=== PATIENT | female | born 1965 | race Caucasian/White ===

== ENCOUNTER → 2016-08-13 | Outpatient (REF) | payer MEDICARE ==
[2016-08-16 00:06] LABS: ENDOMYSIAL ABY IgA Positive (Negative)
== END ==
LOC: M LAB REF 16:44
PROVIDERS: ATTEND Internal Medicine
DX: R19.7 Diarrhea, unspecified (principal); R10.84 Generalized abdominal pain

== ENCOUNTER → 2016-10-02 | Outpatient (CLI) | payer MEDICARE ==
[~2016-10-02] VITALS: Ht 157.5 cm; Wt 76.4 kg
[~2016-10-02] MED LIST: ASPI81TA85 PO; ASTE0.15; BENT10CA PO; CARB1TAB20 PO; HUMA100I5 SC; INSULANT SC; LEVO75TA4 PO; LIDOCAINE 2% INJ 100 MG/5 ML SDV (FOR ANES.) As Ordered ONE; LOSA100T37 PO; NS 1,000 ML IV SCH; PARO-39 PO; PROPOFOL 200 MG/20 ML VIAL As Ordered ONE; SIMV40TA2 PO; TYLE650T35 PO; fentaNYL 100 MCG/2 ML INJECTION (J3010) As Ordered ONE
--- NOTE | 2016-10-02 11:26 | ROOR ---
Patient Name: Diana Rose Procedure Date: 10/02/2016 11:12 AM Date of : 1965 Age: 51 Room: [facility] Gender: Female Note Status: Finalized Procedure: Upper GI endoscopy Indications: Positive celiac serologies, Endoscopy to assess diarrhea in patient suspected of having celiac disease Providers: Alessandro ANSARI MD Referring MD: Tanya Buck DO Requesting Provider: Medicines: Monitored Anesthesia Care Complications: No immediate complications. Procedure: Pre-Anesthesia Assessment: - The heart rate, respiratory rate, oxygen saturations, blood pressure, adequacy of pulmonary ventilation, and response to care were monitored throughout the procedure. The Endoscope was introduced through the mouth, and advanced to the third part of duodenum. The upper GI endoscopy was accomplished without difficulty. The patient tolerated the procedure well. Findings: Diffuse mildly scalloped mucosa was found in the entire examined duodenum. Biopsies were taken with a cold forceps for histology. The exam was otherwise without abnormality. Impression: - Scalloped mucosa was found in the duodenum, not consistent with celiac disease. Biopsied. - The examination was otherwise normal. Recommendation: - Await pathology results. - Gluten free diet for the rest of the patient's life. Alessandro Ansari MD Alessandro ANSARI MD 10/02/2016 11:25:43 AM This report has been signed electronically. Number of Addenda: 0 Note Initiated On: 10/02/2016 11:12 AM Estimated Blood Loss: Estimated blood loss: none.
--- NOTE | 2016-10-02 11:48 | ROOR ---
Patient Name: Diana Rose Procedure Date: 10/02/2016 11:13 AM Date of : 1965 Age: 51 Room: [facility] Gender: Female Note Status: Finalized Procedure: Colonoscopy Indications: Screening in patient at increased risk: Colorectal cancer in father 60 or older, Incidental diarrhea noted, (61), celiac disease, r/o lymphocytic colitis Providers: Alessandro ANSARI MD Referring MD: Tanya Buck DO Requesting Provider: Medicines: Monitored Anesthesia Care Complications: No immediate complications. Procedure: Pre-Anesthesia Assessment: - The heart rate, respiratory rate, oxygen saturations, blood pressure, adequacy of pulmonary ventilation, and response to care were monitored throughout the procedure. The Colonoscope was introduced through the anus and advanced to 5 cm into the ileum. The colonoscopy was performed without difficulty. The patient tolerated the procedure well. The quality of the bowel preparation was good. Findings: The perianal and digital rectal examinations were normal. Two sessile polyps were found in the proximal transverse colon and hepatic flexure. The polyps were 4 to 5 mm in size. These polyps were removed with a cold snare. Resection and retrieval were complete. A scattered area of mildly erythematous mucosa was found in the entire colon. This was biopsied with a cold forceps for evaluation of microscopic colitis. The exam was otherwise without abnormality on direct and retroflexion views. (Exam: Complete, Prep: Good or Excellent.) Impression: - (Exam: Complete, Prep: Good or Excellent.) - The terminal ileum is normal. - Two 4 to 5 mm polyps in the proximal transverse colon and at the hepatic flexure, removed with a cold snare. Resected and retrieved. - Mildly erythematous mucosa in the entire examined colon. Biopsied. - The examination was otherwise normal on direct and retroflexion views. Recommendation: - Telephone endoscopist for pathology results in 2 weeks. - If the pathology report reveals adenomatous tissue, then repeat the colonoscopy for surveillance in 3 years. - If the pathology report indicates hyperplastic polyp, then repeat colonoscopy for screening purposes in 5 years. Alessandro Ansari MD Alessandro ANSARI MD 10/02/2016 11:47:54 AM This report has been signed electronically. Number of Addenda: 0 Note Initiated On: 10/02/2016 11:13 AM Estimated Blood Loss: Estimated blood loss: none.
[2016-10-02 12:20] VITALS: BP 121/71
== END ==
LOC: M OPP 10:43
PROVIDERS: ATTEND Internal Medicine Gastroenterology
DX: D12.3 Benign neoplasm of transverse colon (principal); R79.9 Abnormal finding of blood chemistry, unspecified; K29.80 Duodenitis without bleeding; K52.9 Noninfective gastroenteritis and colitis, unspecified; Z80.0 Family history of malignant neoplasm of digestive organs; K31.89 Other diseases of stomach and duodenum; F41.9 Anxiety disorder, unspecified; G40.909 Epilepsy, unspecified, not intractable, without status epilepticus
CPT/HCPCS: 43239; 45380; 45385; 88305; 99156; 99157; J3010

== ENCOUNTER → 2016-11-07 | Outpatient (REF) | payer MEDICARE ==
[~2016-11-07] MED LIST changes: -LIDOCAINE 2% INJ 100 MG/5 ML SDV (FOR ANES.) As Ordered ONE; -NS 1,000 ML IV SCH; -PROPOFOL 200 MG/20 ML VIAL As Ordered ONE; -fentaNYL 100 MCG/2 ML INJECTION (J3010) As Ordered ONE
== END ==
LOC: M LAB REF 16:55
PROVIDERS: ATTEND Internal Medicine
DX: K90.0 Celiac disease (principal)

== ENCOUNTER → 2016-12-03 | Outpatient (CLI) | payer MEDICARE | LOC: M LAB 10:47 | PROVIDERS: ATTEND Internal Medicine Gastroenterology | DX: K90.0 Celiac disease (principal) ==

== ENCOUNTER → 2016-12-05 | Outpatient (CLI) | payer MEDICARE ==
[~2016-12-05] MED LIST changes: +E-Z-PAQUE 96% w/w SUSP 176GM BTL As Ordered ONE
--- NOTE | 2016-12-08 17:43 | REP ---
Small bowel follow-through The procedure was performed under the direct supervision of Dr. Hollingsworth. The images were reviewed with Dr. Hollingsworth. The outside upholsterer film shows no organomegaly or pathological masses. The intestinal gas pattern is nonspecific. There are degenerative changes of the spine. There are vascular calcifications identified. Liquid barium was administered and the barium column was followed through the small bowel to the level of the terminal ileum. Small bowel transit time is approximately 95 minutes . During fluoroscopy gentle palpation shows all loops are freely movable and pliable. There are no fixed or angulated loops. The small bowel mucosal pattern is normal in course and caliber. There is no transition to suggest a partial small bowel obstruction. Spot filming of the terminal ileum shows it to be unremarkable. Impression: Small bowel follow-through examination within normal limits. 1 minute and 50 seconds of fluoro time was utilized for this procedure. Reviewed by HUNTER Mobley 12/05/2016 05:09 PSigned by Jesús Hollingsworth MD 12/08/2016 05:33 P
== END ==
LOC: M RAD 08:24
PROVIDERS: ATTEND Internal Medicine Gastroenterology
DX: K90.0 Celiac disease (principal)

== ENCOUNTER → 2018-04-30 | Outpatient (REF) | payer MEDICARE ==
[2018-04-30 18:25] LABS: RHEUMATOID FACTOR QUANT < 10.0 IU/ML (<15.0)
[2018-05-04 00:07] LABS: ANTINUCLEAR ANTIBODIES DIRECT Negative (Negative); Lyme Disease IgG/IgM Antibodie <0.91 ISR (0.00-0.90); Lyme Disease IgM Ab Quantitati <0.80 index (0.00-0.79)
== END ==
LOC: M LAB REF 17:36
DX: M25.50 Pain in unspecified joint (principal)
CPT/HCPCS: 86038

== ENCOUNTER → 2019-11-10 | Outpatient (REF) | payer MEDICARE ==
[~2019-11-10] MED LIST changes: -E-Z-PAQUE 96% w/w SUSP 176GM BTL As Ordered ONE; -LOSA100T37 PO; +LOSA100T5 PO; -PARO-39 PO; +PARO20TA4 PO; -SIMV40TA2 PO; +SIMV40TA20 PO
== END ==
LOC: M LAB REF 17:00
PROVIDERS: ATTEND Internal Medicine
DX: K90.0 Celiac disease (principal)

== ENCOUNTER → 2020-05-11 | Outpatient (REF) | payer MEDICARE ==
[~2020-05-11] MED LIST changes: +ACET650T61 PO; -ASPI81TA85 PO; +ASPI81TA86 PO; -TYLE650T35 PO
== END ==
LOC: M LAB REF 11:20
PROVIDERS: ATTEND Internal Medicine
DX: G40.909 Epilepsy, unspecified, not intractable, without status epilepticus (principal)

== ENCOUNTER → 2020-07-15 | Outpatient (CLI) | payer MEDICARE ==
[~2020-07-15] MED LIST changes: +AMLO1TAB24; +CITA40TA4; +ECOT81TA5 PO; +EUTH100T; +GABA-843; +LISI2.5T2; +TRES1INJ2 SQ
== END ==
LOC: M LABSMTC 08:31
PROVIDERS: ATTEND Anesthesiology
DX: Z11.59 Encounter for screening for other viral diseases (principal)

== ENCOUNTER 2020-07-20 07:10 | Day surgery (SDC) | payer MEDICARE ==
[~2020-07-20] VITALS: Ht 154.9 cm; Wt 71.2 kg
[~2020-07-20 07:10] MED LIST changes: +NS 1,000 ML IV ONE
[2020-07-20] MEDS ORDERED: propofoL 200 MG/20 ML VIAL As Ordered ONE (07:31)
[2020-07-20] MEDS ORDERED: LIDOCAINE 2% 100MG/5ML SDV (FOR ANES.) As Ordered ONE (07:31)
--- NOTE | 2020-07-20 08:42 | ROOR ---
Patient Name: Diana Rose Procedure Date: 07/20/2020 8:09 AM Date of : 1965 Age: 55 Room: [facility] Gender: Female Note Status: Finalized Procedure: Colonoscopy Indications: Family history of colorectal cancer in Father, 60 or older (66), High risk colon cancer surveillance: Personal history of colonic polyps. Incidental: History of biopsy proven Microscopic colitis, History of biopsy proven Celiac disease Providers: Alessandro ANSARI MD Referring MD: Tanya Buck DO Requesting Provider: Medicines: Monitored Anesthesia Care Complications: No immediate complications. Procedure: Pre-Anesthesia Assessment: - The heart rate, respiratory rate, oxygen saturations, blood pressure, adequacy of pulmonary ventilation, and response to care were monitored throughout the procedure. The Colonoscope was introduced through the anus and advanced to the terminal ileum, with identification of the appendiceal orifice and IC valve. The colonoscopy was performed without difficulty. The patient tolerated the procedure well. The quality of the bowel preparation was adequate and fair. Findings: The perianal and digital rectal examinations were normal. Small Internal Hemorrhoids. The entire examined colon appeared normal on direct and retroflexion views. Biopsies for histology were taken with a cold forceps for evaluation of microscopic colitis. Impression: - Preparation of the colon was fair. - Small Internal Hemorrhoids. - The entire examined colon is normal on direct and retroflexion views. - Biopsies were taken with a cold forceps for evaluation of microscopic colitis. Recommendation: - Repeat colonoscopy in 5 years for screening purposes. - Gluten free diet. Your celiac marker is still elevated as of 11/2019. Your gluten free restriction is inadequate as of 11/2019. Consideration should be given to a Nutrition/dietary consult. Procedure Code(s): --- Professional --- 38346, Colonoscopy, flexible; with biopsy, single or multiple Diagnosis Code(s): --- Professional --- Z12.11, Encounter for screening for malignant neoplasm of colon Z80.0, Family history of malignant neoplasm of digestive organs Z86.010, Personal history of colonic polyps CPT copyright 2019 [employer]. All rights reserved. The codes documented in this report are preliminary and upon deputy harbormaster review may be revised to meet current compliance requirements. Alessandro Ansari MD Alessandro ANSARI MD 07/20/2020 8:42:17 AM Electronically signed by Alessandro ANSARI MD Number of Addenda: 0 Note Initiated On: 07/20/2020 8:09 AM Estimated Blood Loss: Estimated blood loss: none.
[2020-07-20 09:02] VITALS: BP 177/77
== END 2020-07-20 09:05 | disposition home or self-care (01) ==
LOC: M OPP 07:10
PROVIDERS: ATTEND Internal Medicine Gastroenterology
DX: Z12.11 Encounter for screening for malignant neoplasm of colon (principal); Z86.010 Personal history of colon polyps; Z80.0 Family history of malignant neoplasm of digestive organs; K64.8 Other hemorrhoids; E11.9 Type 2 diabetes mellitus without complications; I10 Essential (primary) hypertension; Z79.4 Long term (current) use of insulin; Z79.82 Long term (current) use of aspirin; Z79.899 Other long term (current) drug therapy; Z88.5 Allergy status to narcotic agent; Z91.018 Allergy to other foods

== ENCOUNTER → 2021-05-16 | Outpatient (REF) | payer MEDICARE ==
[~2021-05-16] MED LIST changes: +GABA-282; -GABA-843; -LISI2.5T2; +LISI2.5T9; -NS 1,000 ML IV ONE
[2021-05-18 17:11] LABS: Lyme Disease IgG/IgM Antibodie <0.91 ISR (0.00-0.90); Lyme Disease IgM Ab Quantitati <0.80 index (0.00-0.79)
== END ==
LOC: M LAB REF 16:37
PROVIDERS: ATTEND Internal Medicine
DX: Z11.9 Encounter for screening for infectious and parasitic diseases, unspecified (principal); W57.XXXA Bitten or stung by nonvenomous insect and other nonvenomous arthropods, initial encounter

== ENCOUNTER → 2021-08-27 | Outpatient (REF) | payer MEDICARE ==
[~2021-08-27] MED LIST changes: -CITA40TA4; +CITA40TA7
== END ==
LOC: M LAB REF 16:14
PROVIDERS: ATTEND Internal Medicine
DX: G60.9 Hereditary and idiopathic neuropathy, unspecified (principal)

== ENCOUNTER → 2021-09-16 | Outpatient (CLI) | payer MEDICARE | LOC: M RAD 06:18 | PROVIDERS: ATTEND Internal Medicine | DX: M51.26 Other intervertebral disc displacement, lumbar region (principal); M51.27 Other intervertebral disc displacement, lumbosacral region; M51.36 Other intervertebral disc degeneration, lumbar region; M51.37 Other intervertebral disc degeneration, lumbosacral region; M21.371 Foot drop, right foot; M48.00 Spinal stenosis, site unspecified ==

== ENCOUNTER → 2022-04-15 | Outpatient (REF) | payer MEDICARE ==
[2022-04-15 19:12] LABS: CREATININE, URINE 90.7 MG/DL
== END ==
LOC: M LAB REF 17:04
PROVIDERS: ATTEND Internal Medicine Endocrinology, Diabetes & Metabolism
DX: E10.649 Type 1 diabetes mellitus with hypoglycemia without coma (principal)

== ENCOUNTER → 2023-07-23 | Outpatient (CLI) | payer MEDICARE | LOC: M WHC 07:22 | PROVIDERS: ATTEND Internal Medicine | DX: Z12.31 Encounter for screening mammogram for malignant neoplasm of breast (principal) ==